=== PATIENT | male | born 1985 | race African-American/Black ===

== ENCOUNTER 2018-07-10 06:24 | Emergency (ER) | payer MEDICARE, OTHER ==
[2018-07-10 06:41] VITALS: BP 157/90; PULSE 102; RESP 20; TEMP 98.6
[2018-07-10] MEDS ORDERED: LORazepam 1 MG TAB PO STA (07:15)
--- NOTE | 2018-07-10 07:17 | ED ---
General Adult HPI - General Chief complaint: Anxiety Stated complaint: anxiety Time Seen by Provider: 07/10/18 07:04 Source: patient, RN notes reviewed Mode of arrival: ambulatory Limitations: no limitations - History of Present Illness Initial comments: Patient is a pleasant 33-year-old male presenting to the emergency Department with mother for anxiety. Symptoms have been worse over the past week, especially today. Patient is anxious regarding to shows that he has coming up. Patient does have a history of depression and anxiety. Patient does admit to feeling somewhat depressed. Patient states there is no suicidal or homicidal thoughts. Patient states he is functional. No physical complaints. No hallucinations. Patient does have a history of similar symptoms previously. Patient does not feel he needs to be admitted to the hospital. - Related Data Home Medications Medication Instructions Recorded Confirmed Hydrochlorothiazide [Hydrodiuril] 25 mg PO DAILY 07/10/18 07/10/18 Lisinopril [Zestril] 5 mg PO DAILY 07/10/18 07/10/18 Ziprasidone [Geodon] 20 mg PO BID 07/10/18 07/10/18 Allergies Allergy/AdvReac Type Severity Reaction Status Date / Time No Known Allergies Allergy Verified 07/10/18 06:41 Review of Systems ROS Statement: Those systems with pertinent positive or pertinent negative responses have been documented in the HPI. ROS Other: All systems not noted in ROS Statement are negative. Constitutional: Denies: fever Eyes: Denies: eye pain ENT: Denies: ear pain Respiratory: Denies: cough Cardiovascular: Denies: chest pain Endocrine: Denies: fatigue Gastrointestinal: Denies: abdominal pain Genitourinary: Denies: dysuria Musculoskeletal: Denies: back pain Skin: Denies: rash Neurological: Denies: weakness Psychiatric: Reports: anxiety, depression. Denies: auditory hallucinations, visual hallucinations, homicidal thoughts, suicidal thoughts Past Medical History Past Medical History: Hypertension History of Any Multi-Drug Resistant Organisms: None Reported Past Surgical History: Hernia Repair Past Psychological History: Anxiety, Depression Smoking Status: Never smoker Past Alcohol Use History: None Reported, Heavy Past Drug Use History: None Reported General Exam Limitations: no limitations General appearance: alert, in no apparent distress, anxious Head exam: Present: atraumatic Eye exam: Present: normal appearance, PERRL ENT exam: Present: normal oropharynx Neck exam: Present: normal inspection Respiratory exam: Present: normal lung sounds bilaterally Cardiovascular Exam: Present: regular rate, normal rhythm GI/Abdominal exam: Present: soft. Absent: tenderness Extremities exam: Present: normal inspection Neurological exam: Present: alert. Absent: motor sensory deficit Psychiatric exam: Present: anxious Skin exam: Present: normal color Course Vital Signs 07/10/18 06:36 Temperature 98.6 F Pulse Rate 102 H Respiratory 20 Rate Blood Pressure 157/90 O2 Sat by Pulse 97 Oximetry Disposition Clinical Impression: Acute anxiety Disposition: HOME SELF-CARE Condition: Stable Instructions: Generalized Anxiety Disorder (ED) Additional Instructions: Please follow-up with primary care physician in the next couple of days for recheck and medication review. Return for thoughts of self-harm, worsening symptoms or other concerns. Is patient prescribed a controlled substance at d/c from ED?: No Referrals: Venice Wild MD [Primary Care Provider] - 1-2 days Time of Disposition: 07:17
== END 2018-07-10 07:30 | disposition home or self-care (01) ==
LOC: EC 06:24
DX: F41.9 Anxiety disorder, unspecified (principal); F32.9 Major depressive disorder, single episode, unspecified; I10 Essential (primary) hypertension; Z79.899 Other long term (current) drug therapy
CPT/HCPCS: 99283

== ENCOUNTER 2018-07-25 14:18 | Emergency (ER) | payer OTHER ==
[2018-07-25] MEDS ORDERED: ONDANSETRON 4 MG/2 ML VIAL IVP STA (14:49)
[2018-07-25] MEDS ORDERED: MORPHINE SULFATE 4 MG/ML SYRINGE IV STA (14:49)
[2018-07-25] MEDS ORDERED: VANCOMYCIN 1,500 MG in SODIUM CHLORIDE 0.9% 250 ML IVPB STA (14:49)
--- NOTE | 2018-07-25 14:52 | ED ---
General Adult HPI - General Chief complaint: Skin/Abscess/Foreign Body Stated complaint: Cellulitis Time Seen by Provider: 07/25/18 14:31 Source: patient, RN notes reviewed Mode of arrival: ambulatory Limitations: no limitations - History of Present Illness Initial comments: Patient 33-year-old male with significant past medical history for hypertension , presents emergency room today with a chief complaint of a abscess to the left hip. Patient does admit that he fell approximately a week ago. He states it was a small bruise start with. He states over last 3 or 4 days she's noticed area becoming more tender and painful. States her last dated started to drain. Patient states that he didn't follow up with urgent care today sized to come here to the emergency room for further evaluation. Patient denies any recent fever, chills, shortness of breath, chest pain, back pain, abdominal pain, nausea or vomiting, numbness or tingling, headaches or visual changes, or any other complaints. - Related Data Home Medications Medication Instructions Recorded Confirmed Hydrochlorothiazide [Hydrodiuril] 25 mg PO DAILY 07/10/18 07/10/18 Lisinopril [Zestril] 5 mg PO DAILY 07/10/18 07/10/18 Ziprasidone [Geodon] 20 mg PO BID 07/10/18 07/10/18 Previous Rx's Medication Instructions Recorded Cephalexin [Keflex] 500 mg PO Q12HR 10 Days cap 07/25/18 Sulfamethox-Tmp 800-160Mg [Bactrim 1 tab PO Q12HR #20 tab 07/25/18 DS 800-160 mg] Allergies Allergy/AdvReac Type Severity Reaction Status Date / Time No Known Allergies Allergy Verified 07/25/18 14:25 Review of Systems ROS Statement: Those systems with pertinent positive or pertinent negative responses have been documented in the HPI. ROS Other: All systems not noted in ROS Statement are negative. Past Medical History Past Medical History: Hypertension History of Any Multi-Drug Resistant Organisms: None Reported Past Surgical History: Hernia Repair Past Psychological History: Anxiety, Depression Smoking Status: Never smoker Past Alcohol Use History: Heavy Past Drug Use History: None Reported General Exam - General Exam Comments Initial Comments: General: The patient is awake and alert, in no distress, and does not appear acutely ill. Eye: Pupils are equal, round and reactive to light. Extra-ocular movements are intact. No nystagmus. There is normal conjunctiva bilaterally. No signs of icterus. Ears, nose, mouth and throat: There are moist mucous membranes and no oral lesions. Neck: The neck is supple, there is no tenderness or JVD. Musculoskeletal: Normal ROM, no tenderness. Sensation intact. Strength 5/5. Pulses equal bilaterally 2+. Neurological: A&O x 3. CN II-XII intact, There are no obvious motor or sensory deficits. Coordination appears grossly intact. Speech is normal. Skin: Patient does have large abscess to the left hip. Measures approximately 4 cm across. There is an ulcerated area centrally with some small amount of drainage. Psychiatric: Cooperative, appropriate mood & affect, normal judgment. Limitations: no limitations Course Vital Signs 07/25/18 14:22 Temperature 99.0 F Pulse Rate 84 Respiratory 20 Rate Blood Pressure 117/79 O2 Sat by Pulse 97 Oximetry Procedures - Procedures Initial comment: Procedure: Incision and drainage The skin overlying the abscess was prepped with Betadine, and anesthetized with 1% lidocaine without epinephrine. A #11 scalpel was then used to incise the abscess. Some purulent material was then extracted from the lesion. Wound culture obtained. Gauze dressing placed on top, The patient tolerated the procedure well. Medical Decision Making - Medical Decision Making Patient reexamined at this time shows no signs of icterus is resting comfortably. Patient's abscess had minimal drainage in the emergency room. Wound culture is pending. Labs reviewed and negative lactic acid. White count 15,000. Was recommended to the patient about admission to the hospital. 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 States that he cannot stay to be admitted. Patient has received IV dose of vancomycin and Rocephin emergency room. Patient will be continued on antibiotics Keflex, Bactrim. Is advised following up with family physician/ surgeon. Advised that should return if symptoms increase or worsen. Advised to use warm compresses to the affected area. He states understanding and is in agreement. - Lab Data Result diagrams: 07/25/18 15:02 07/25/18 15:02 Lab Results 07/25/18 07/25/18 07/25/18 Range/Units 15:02 15:02 15:02 WBC 15.5 H (3.8-10.6) k/uL RBC 5.01 (4.30-5.90) m/uL Hgb 15.5 (13.0-17.5) gm/dL Hct 44.4 (39.0-53.0) % MCV 88.6 (80.0-100.0) fL MCH 30.9 (25.0-35.0) pg MCHC 34.9 (31.0-37.0) g/dL RDW 12.3 (11.5-15.5) % Plt Count 200 (150-450) k/uL Neutrophils % 76 % Lymphocytes % 11 % Monocytes % 9 % Eosinophils % 1 % Basophils % 0 % Neutrophils # 11.9 H (1.3-7.7) k/uL Lymphocytes # 1.7 (1.0-4.8) k/uL Monocytes # 1.4 H (0-1.0) k/uL Eosinophils # 0.1 (0-0.7) k/uL Basophils # 0.0 (0-0.2) k/uL Sodium 136 L (137-145) mmol/L Potassium 3.6 (3.5-5.1) mmol/L Chloride 95 L (98-107) mmol/L Carbon Dioxide 31 H (22-30) mmol/L Anion Gap 10 mmol/L BUN 18 (9-20) mg/dL Creatinine 1.05 (0.66-1.25) mg/dL Est GFR (CKD-EPI)AfAm >90 (>60 ml/min/1.73 sqM) Est GFR (CKD-EPI)NonAf >90 (>60 ml/min/1.73 sqM) Glucose 105 H (74-99) mg/dL Plasma Lactic Acid Casey 1.0 (0.7-2.0) mmol/L Calcium 9.1 (8.4-10.2) mg/dL Total Bilirubin 2.0 H (0.2-1.3) mg/dL AST 29 (17-59) U/L ALT 20 L (21-72) U/L Alkaline Phosphatase 62 (38-126) U/L Total Protein 7.4 (6.3-8.2) g/dL Albumin 4.0 (3.5-5.0) g/dL Disposition Clinical Impression: Abscess or cellulitis of hip Disposition: HOME SELF-CARE Instructions: Abscess (ED) Additional Instructions: Please use medication as discussed. Please follow-up with the surgeon/family doctor over the next 2 days. Please remove packing gauze in 2 days as discussed or return here to the emergency room symptoms increase worsen. Prescriptions: Cephalexin [Keflex] 500 mg PO Q12HR 10 Days cap Sulfamethox-Tmp 800-160Mg [Bactrim DS 800-160 mg] 1 tab PO Q12HR #20 tab Is patient prescribed a controlled substance at d/c from ED?: No Referrals: Venice Wild MD [Primary Care Provider] - 1-2 days Niko Massey DO [Doctor of Osteopathic Medicine] - 1-2 days Time of Disposition: 16:42
[2018-07-25] MEDS ORDERED: LIDOCAINE 1% INJ 10MG/ML (20 ML MDV) SQ STA (15:14)
[2018-07-25 15:20] LABS: Basophils % (A) 0 %; Eosinophils # (A) 0.1 k/uL (0-0.7); Eosinophils % (A) 1 %; HCT 44.4 % (39.0-53.0); HGB 15.5 gm/dL (13.0-17.5); Lymphocytes # (A) 1.7 k/uL (1.0-4.8); Lymphocytes % (A) 11 %; MCH 30.9 pg (25.0-35.0); MCHC 34.9 g/dL (31.0-37.0); MCV 88.6 fL (80.0-100.0); Mean Platelet Volume 7.8; Monocytes # (A) 1.4 k/uL (0-1.0); Monocytes % (A) 9 %; Neutrophils # (A) 11.9 k/uL (1.3-7.7); Neutrophils % (A) 76 %; Platelet Count 200 k/uL (150-450); RBC 5.01 m/uL (4.30-5.90); RDW 12.3 % (11.5-15.5); WBC 15.5 k/uL (3.8-10.6)
[2018-07-25 15:39] LABS: ALT 20 U/L (21-72); AST 29 U/L (17-59); Alkaline Phosphatase 62 U/L (38-126); Anion Gap 10 mmol/L; Blood Urea Nitrogen 18 mg/dL (9-20); Calcium 9.1 mg/dL (8.4-10.2); Carbon Dioxide 31 mmol/L (22-30); Chloride 95 mmol/L (98-107); Glucose 105 mg/dL (74-99); Sodium 136 mmol/L (137-145); Total Protein 7.4 g/dL (6.3-8.2)
[2018-07-25 15:42] LABS: Potassium 3.6 mmol/L (3.5-5.1)
[2018-07-25 17:53] VITALS: BP 112/70; PULSE 82; RESP 18; TEMP 98
[2018-07-26] MEDS ORDERED: VANCOMYCIN 1,500 MG in SODIUM CHLORIDE 0.9% 250 ML IVPB SCH ×2
== END 2018-07-25 17:48 | disposition home or self-care (01) ==
LOC: EC 14:18
DX: L02.416 Cutaneous abscess of left lower limb (principal); I10 Essential (primary) hypertension; F32.9 Major depressive disorder, single episode, unspecified; Z79.899 Other long term (current) drug therapy
CPT/HCPCS: 36415; 80053; 83605; 85025; 87040; 87070; 87205; 99283; 10060; 96365; 96367; 96366; J3370; J2270; J2405; J2001; J0696

== ENCOUNTER 2018-07-26 21:18 | Inpatient (IN) | payer OTHER ==
[2018-07-26] MEDS ORDERED: ceFAZolin IN SWFI 2 GM/20 ML SYRINGE IVP ONE (21:40)
[2018-07-26] MEDS ORDERED: ACETAMINOPHEN TAB 325 MG TAB PO PRN (21:40)
[2018-07-26] MEDS ORDERED: IBUPROFEN 400 MG TAB PO PRN (21:40)
[2018-07-26] MEDS ORDERED: oxyCODONE-APAP 5-325MG 1 EACH TAB PO PRN (21:40)
[2018-07-26] MEDS ORDERED: NALOXONE 0.4 MG/ML 1 ML VIAL IV PRN (21:40)
--- NOTE | 2018-07-26 22:09 | ED ---
Skin/Abscess/FB HPI - General Chief complaint: Skin/Abscess/Foreign Body Stated complaint: ABNORMAL LABS Source: patient Mode of arrival: ambulatory Limitations: no limitations - History of Present Illness Initial comments: Guru is a 33-year-old male with a history of hypertension who presents to the emergency department today after labs from yesterday revealed blood cultures that were positive for group A strep. Patient was seen and evaluated in our department yesterday for an abscess on his left hip. The abscess was I&D, it was packed with gauze and he was discharged home on oral Bactrim and Keflex. 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 His mother picked up his medications from the pharmacy today and he took his first dose around 5 PM. Patient was called back and notified of is positive for cultures and immediately return to the emergency department for reevaluation and admission. - Related Data Home Medications Medication Instructions Recorded Confirmed Hydrochlorothiazide [Hydrodiuril] 25 mg PO DAILY 07/10/18 07/26/18 Lisinopril [Zestril] 5 mg PO DAILY 07/10/18 07/26/18 Ziprasidone [Geodon] 20 mg PO BID 07/10/18 07/26/18 Potassium Chloride ER [K-Dur 20] 20 meq PO DAILY 07/26/18 07/26/18 Previous Rx's Medication Instructions Recorded Cephalexin [Keflex] 500 mg PO Q12HR 10 Days cap 07/25/18 Sulfamethox-Tmp 800-160Mg [Bactrim 1 tab PO Q12HR #20 tab 07/25/18 DS 800-160 mg] Allergies Allergy/AdvReac Type Severity Reaction Status Date / Time No Known Allergies Allergy Verified 07/26/18 21:37 Review of Systems ROS Statement: Those systems with pertinent positive or pertinent negative responses have been documented in the HPI. ROS Other: All systems not noted in ROS Statement are negative. Past Medical History Past Medical History: Hypertension History of Any Multi-Drug Resistant Organisms: None Reported Past Surgical History: Hernia Repair Past Psychological History: Anxiety, Depression Smoking Status: Never smoker Past Alcohol Use History: Heavy Past Drug Use History: None Reported General Exam - General Exam Comments Initial Comments: Physical Exam GENERAL: Patient is well-developed and well-nourished. Patient is nontoxic and well-hydrated and is in no distress. HENT: Normocephalic, Atraumatic. EYES: PERRL, EOMI PULMONARY: Unlabored respirations. CARDIOVASCULAR: There is a regular rate and rhythm without any murmurs gallops or rubs. ABDOMEN: Soft and nontender with normal bowel sounds. SKIN: Abscess on left hip, packed with gauze, minimal purulent drainage, surrounding cellulitis. : Deferred NEUROLOGIC: Patient is alert and oriented x3. Moving all extremities spontaneously MUSCULOSKELETAL: Normal extremities with adequate strength and full range of motion. No lower extremity swelling or edema. No calf tenderness. PSYCHIATRIC: Normal psychiatric evaluation. Limitations: no limitations Limitations: no limitations Course Vital Signs 07/26/18 21:20 Temperature 98 F Pulse Rate 85 Respiratory 18 Rate Blood Pressure 137/85 O2 Sat by Pulse 99 Oximetry Medical Decision Making - Medical Decision Making care was discussed with Dr. Tesfaye evaluated the patient yesterday and followed up on blood cultures today. He had contacted the patient to return back to the emergency department today for admission. Dr. Tesfaye had discussed the patient care with infectious disease Dr Cisneros who recommended repeat blood cultures and Cafazolin 2g Q8hr Patient was seen and evaluated immediately upon arrival Repeat sepsis order set was ordered Patient's vital signs stable, no hypotension Physical exam reveals abscess which is packed as well as cellulitis with minimal tenderness Patient very well-appearing, agreeable to plan for admission for IV antibiotics. Admission orders were placed. - EKG Data -: EKG Interpreted by Me EKG Comments: EKG obtained at 2209, rate is 65, rhythm is sinus, there is a leftward axis, normal intervals, MA 126, QRS 1-2, QTc 420. There are no acute ST elevations or depressions no evidence of acute ischemia or infarction. Disposition Clinical Impression: Bacteremia, Abscess or cellulitis of hip Disposition: ADMITTED IP TO THIS HOSP Referrals: Venice Wild MD [Primary Care Provider] - 1-2 days
[2018-07-26 22:10] LABS: Partial Thromboplastin Time 25.4 sec (22.0-30.0); Prothrombin Time 10.1 sec (9.0-12.0)
[2018-07-26 22:14] LABS: ALT 22 U/L (21-72); AST 26 U/L (17-59); Alkaline Phosphatase 82 U/L (38-126); Anion Gap 8 mmol/L; Blood Urea Nitrogen 19 mg/dL (9-20); Calcium 9.4 mg/dL (8.4-10.2); Carbon Dioxide 31 mmol/L (22-30); Chloride 100 mmol/L (98-107); Glucose 98 mg/dL (74-99); Potassium 3.3 mmol/L (3.5-5.1); Sodium 139 mmol/L (137-145); Total Bilirubin 1.2 mg/dL (0.2-1.3); Total Protein 7.3 g/dL (6.3-8.2)
[2018-07-26 22:16] LABS: HCT 43.2 % (39.0-53.0); HGB 14.7 gm/dL (13.0-17.5); MCH 30.4 pg (25.0-35.0); MCHC 33.9 g/dL (31.0-37.0); MCV 89.6 fL (80.0-100.0); Mean Platelet Volume 7.5; Platelet Count 258 k/uL (150-450); RBC 4.82 m/uL (4.30-5.90); RDW 12.4 % (11.5-15.5); WBC 6.1 k/uL (3.8-10.6)
[2018-07-26] MEDS: SODIUM CHLORIDE 0.9% 1,000 ML IV SCH ×2 (22:17→22:18)
[2018-07-26] MEDS: SODIUM CHLORIDE 0.9% 500 ML 500 ML IV SCH ×2 (22:19→23:34)
[2018-07-26 22:52] LABS: Eosinophils # (M) 0.06 k/uL (0-0.7); Lymphocytes # (M) 1.34 k/uL (1.0-4.8); Monocytes # (M) 1.16 k/uL (0-1.0); Neutrophils # (M) 3.54 k/uL (1.3-7.7); Neutrophils % (M) 58 %; Nucleated Red Blood Cells 0 /100 WBC (0-0); Total Cells Counted 100
[2018-07-27] MEDS: ceFAZolin IN SWFI 2 GM/20 ML SYRINGE IVP SCH ×3 (05:07→21:20)
--- NOTE | 2018-07-27 08:53 | P.HPIM ---
History of Present Illness This is a pleasant 33 years old male with past medical history of hypertension and depression, he came because of infected wound with purulent discharge on his left lateral upper thigh. 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 In the emergency room Vitas looks stable patient is afebrile. His WBC is 6.1K. Risks of CBC was unremarkable as well as BMP except for mild hypokalemia. Wound culture is positive for strep pyogenes. EKG shows normal sinus rhythm. Review of Systems CONSTITUTIONAL: No fever, no malaise, no fatigue. HEENT: No recent visual problems or hearing problems. Denied any sore throat. CARDIOVASCULAR: No orthopnea, PND, no palpitations, no syncope. PULMONARY: No shortness of breath, no cough, no hemoptysis. GASTROINTESTINAL: No diarrhea, no nausea, no vomiting, no abdominal pain. Normoactive bowel sounds. NEUROLOGICAL: No headaches, no weakness, no numbness. HEMATOLOGICAL: Denies any bleeding or petechiae. GENITOURINARY: Denies any burning micturition, frequency, or urgency. MUSCULOSKELETAL/RHEUMATOLOGICAL: Denies any joint pain, swelling, or any muscle pain. ENDOCRINE: Denies any polyuria or polydipsia. Past Medical History Past Medical History: Hypertension History of Any Multi-Drug Resistant Organisms: None Reported Past Surgical History: Hernia Repair Past Psychological History: Anxiety, Bipolar, Depression Smoking Status: Never smoker Past Alcohol Use History: Heavy Past Drug Use History: None Reported - Past Family History Mother Family Medical History: CVA/TIA Additional Family Medical History / Comment(s): breast CA Medications and Allergies Home Medications Medication Instructions Recorded Confirmed Type Hydrochlorothiazide [Hydrodiuril] 25 mg PO DAILY 07/10/18 07/26/18 History Lisinopril [Zestril] 5 mg PO DAILY 07/10/18 07/26/18 History Ziprasidone [Geodon] 20 mg PO BID 07/10/18 07/26/18 History Cephalexin [Keflex] 500 mg PO Q12HR 10 Days cap 07/25/18 07/26/18 Rx Sulfamethox-Tmp 800-160Mg [Bactrim 1 tab PO Q12HR #20 tab 07/25/18 07/26/18 Rx DS 800-160 mg] Potassium Chloride ER [K-Dur 20] 20 meq PO DAILY 07/26/18 07/26/18 History Allergies Allergy/AdvReac Type Severity Reaction Status Date / Time No Known Allergies Allergy Verified 07/26/18 21:37 Physical Exam Vitals: Vital Signs Temp Pulse Pulse Resp BP BP Pulse Ox 07/27/18 05:50 97.7 F 59 L 16 133/78 100 07/26/18 23:00 97.9 F 76 16 135/90 95 07/26/18 21:20 98 F 85 18 137/85 99 Intake and Output 07/26/18 07/27/18 07/27/18 22:59 06:59 14:59 Other: # Voids 2 Weight 92.079 kg GENERAL: The patient is alert and oriented x3, not in any acute distress. Well developed, well nourished. HEENT: Pupils are round and equally reacting to light. EOMI. No scleral icterus. No conjunctival pallor. Normocephalic, atraumatic. No pharyngeal erythema. No thyromegaly. CARDIOVASCULAR: S1 and S2 present. No murmurs, rubs, or gallops. PULMONARY: Chest is clear to auscultation, no wheezing or crackles. ABDOMEN: Soft, nontender, nondistended, normoactive bowel sounds. No palpable organomegaly. MUSCULOSKELETAL: No joint swelling or deformity. -EXTREMITIES: No cyanosis, clubbing, or pedal edema. Left upper arm lateral thigh wound about half inch in diameter and there is wick in place soaked with some purulent drainage NEUROLOGICAL: Gross neurological examination did not reveal any focal deficits. SKIN: No rashes. Results CBC & Chem 7: 07/26/18 21:47 07/26/18 21:47 Labs: Abnormal Lab Results - Last 24 Hours (Table) 07/26/18 07/26/18 Range/Units 21:47 21:47 Monocytes # (Manual) 1.16 H (0-1.0) k/uL Potassium 3.3 L (3.5-5.1) mmol/L Carbon Dioxide 31 H (22-30) mmol/L Thrombosis Risk Factor Assmnt - Choose All That Apply Any of the Below Risk Factors Present?: No Other Risk Factors: No Other congenital or acquired thrombophilia - If yes, enter type in comment: No Thrombosis Risk Factor Assessment Level: Very Low Risk Assessment and Plan Assessment: Infected left upper thigh wound Status post fall, without loss of consciousness. History of depression Essential hypertension Plan: this is a pleasant 43 years old male who comes with a suspected left upper thigh wound. We'll continue with antibiotics. Follow-up culture and sensitivity. Infectious disease consult. And surgical service consult. Labs and medication were reviewed.. Continue same treatment. Continue with symptomatic treatment. Resume home medication. Monitor lytes and vitals. DVT and GI prophylaxis. Further recommendations of the clinical course of the patient DVT prophylaxis: Subcutaneous heparin GI Prophylaxis: Pepcid PT/OT: Pending Prognosis is guarded
[2018-07-27] MEDS: HYDROCHLOROTHIAZIDE 25 MG TAB PO SCH (10:17)
[2018-07-27] MEDS: HEPARIN SODIUM,PORCINE 5,000 UNIT/ML 1 ML VIAL SQ SCH ×2 (10:17→20:50)
[2018-07-27] MEDS: LISINOPRIL 5 MG TAB PO SCH (10:17)
[2018-07-27] MEDS: ZIPRASIDONE 20 MG CAP PO SCH ×2 (10:18→20:50)
[2018-07-27] MEDS: POTASSIUM CHLORIDE ER 20 MEQ TAB.ER PO SCH (10:18)
[2018-07-27] MEDS: SODIUM CHLORIDE 0.9% 1,000 ML IV SCH ×2 (16:57→21:12)
--- NOTE | 2018-07-27 19:30 | CONS ---
CONSULTATION DATE OF SERVICE: 07/27/2018. REASON FOR CONSULTATION: 1. Left gluteal abscess. 2. Strep bacteremia. HISTORY OF PRESENT ILLNESS: The patient is a 33 -year-old male who was recently evaluated in the [facility] ER on 07/25/2018. The patient presented with a painful lump to his left gluteal area that the patient had for about a week before he presented to the hospital. It started as a small bruise that has significant increase in size. Has been becoming more painful and tender. Pain described to be throbbing 6 to 7/10, and no radiation. The patient subsequently was evaluated by the ER physician and did have drainage of this abscess. This patient did have local cultures obtained as well as blood cultures and was discharged home on the oral Keflex and Bactrim DS. The lab called yesterday and his blood cultures to be positive with group B strep and the patient has been advised to come back to the hospital. Subsequently was admitted to the hospital and discussion with the ER physician, cefazolin was recommended but the patient currently be started on. He has been admitted hospital and I was asked to see the patient for further recommendation regarding antibiotic therapy. REVIEW OF SYSTEMS: CONSTITUTIONAL: Positive for weakness, some chills but denies high fever. Eyes: No complaint. ENT no complaint. Respiratory: No complaint. Cardiovascular: No complaint. Genitourinary no complaint. Gastrointestinal: No complaint. Musculoskeletal as per HPI. Integumentary as per HPI. Psychological: No complaint. Endocrine: No complaint. Neurologic: No complaint. PAST MEDICAL HISTORY: Hypertension, anxiety, depression. PAST SURGICAL HISTORY: Hernia repair. SOCIAL HISTORY: Positive for heavy drinking. No smoking or drug use. FAMILY HISTORY: No pertinent findings noticed. ALLERGIES: No known drug allergies. MEDICATION: Medications include the patient is currently on Tylenol, cefazolin 2 g every 8 hours. Heparin, hydrochlorothiazide, Motrin Zestril, Narcan, Percocet, K-Dur, . EXAMINATION: Blood pressure is 123/75 with a pulse of 71, temperature 98.2. He is 97% on room air. General appearance is a middle-aged male lying in bed in no distress. No tachypnea or accessory muscles of respiration use. HEENT: Shows no pallor or scleral icterus. Oral mucosa membranes are dry. No pharyngeal erythema or thrush. NECK: Trachea central. No thyromegaly. LUNGS: Unlabored breathing, clear to auscultation anteriorly. No wheeze or crackles. Heart S1, S2. Regular rate and rhythm. ABDOMEN: Soft, no tenderness. No guarding or rigidity. Extremities are no edema of the feet. Examination of the left hip area did have a wound with significant slough tissue. No surrounding erythema or induration or any foul-smelling drainage. Neurologically, patient is awake, alert, oriented times three. Mood and affect normal. LABS: Hemoglobin is 14.7, white count 6.1, BUN of 19 creatinine 0.95. has been normal. Blood culture has been negative so far. The wound culture with Streptococcus pyogenes. DIAGNOSTIC IMPRESSION AND PLAN: Patient with left hip/gluteal area abscess status post drainage. Culture has been positive for Streptococcus pyogenes with blood culture reported positive. However I do not see those cultures positive in the system. Will be contacting the lab to clarify the position. Blood culture has been ordered repeat which has been negative so far. PLAN: 1. Recommend cefazolin 2 g q.8 hours while waiting for the blood culture to finalize. 2. Local wound care with Aquacel Silver packing of the wound. 3. We will follow up on clinical condition and culture to further adjust medication if needed. Thank you for this consultation. We will follow the patient along with you. BISMARK / YOUSUFN: [id number] /
[2018-07-28] MEDS: ceFAZolin IN SWFI 2 GM/20 ML SYRINGE IVP SCH ×2 (06:27→13:00)
[2018-07-28] MEDS: POTASSIUM CHLORIDE ER 20 MEQ TAB.ER PO SCH (07:23)
[2018-07-28] MEDS: HEPARIN SODIUM,PORCINE 5,000 UNIT/ML 1 ML VIAL SQ SCH (07:23)
[2018-07-28] MEDS: HYDROCHLOROTHIAZIDE 25 MG TAB PO SCH (07:24)
[2018-07-28] MEDS: ZIPRASIDONE 20 MG CAP PO SCH (07:24)
[2018-07-28] MEDS: LISINOPRIL 5 MG TAB PO SCH (07:24)
--- NOTE | 2018-07-28 09:37 | P.GSCN ---
History of Present Illness Consult date: 07/28/18 History of present illness: 33-year-old male presented to the emergency department on 07/25/2018 due to a painful lump on his left lateral thigh. He states that this lump had been present for approximately 1 week prior to his arrival to the emergency department. On exam by the emergency department, the patient did have an incision and drainage of this site. Cultures were obtained at the time. 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 He was called by the hospital after culture results were finalized to return to the hospital for IV antibiotics. The patient did return. He has been admitted and has been placed on IV antibiotics with an infectious disease consultation. He states that the pain from the site has improved since the incision and drainage. He states that there is still some drainage from the site. He denies any fevers, chills, chest pain or shortness of breath. Review of Systems All systems: negative Past Medical History Past Medical History: Hypertension History of Any Multi-Drug Resistant Organisms: None Reported Past Surgical History: Hernia Repair Past Psychological History: Anxiety, Bipolar, Depression Smoking Status: Never smoker Past Alcohol Use History: Heavy Past Drug Use History: None Reported - Past Family History Mother Family Medical History: CVA/TIA Additional Family Medical History / Comment(s): breast CA Medications and Allergies Home Medications Medication Instructions Recorded Confirmed Type Hydrochlorothiazide [Hydrodiuril] 25 mg PO DAILY 07/10/18 07/26/18 History Lisinopril [Zestril] 5 mg PO DAILY 07/10/18 07/26/18 History Ziprasidone [Geodon] 20 mg PO BID 07/10/18 07/26/18 History Cephalexin [Keflex] 500 mg PO Q12HR 10 Days cap 07/25/18 07/26/18 Rx Sulfamethox-Tmp 800-160Mg [Bactrim 1 tab PO Q12HR #20 tab 07/25/18 07/26/18 Rx DS 800-160 mg] Potassium Chloride ER [K-Dur 20] 20 meq PO DAILY 07/26/18 07/26/18 History Allergies Allergy/AdvReac Type Severity Reaction Status Date / Time No Known Allergies Allergy Verified 07/26/18 21:37 Surgical - Exam Osteopathic Statement: *. No significant issues noted on an osteopathic structural exam other than those noted in the History and Physical/Consult. Vital Signs Temp Pulse Resp BP Pulse Ox 98 F 85 18 137/85 99 07/26/18 21:20 07/26/18 21:20 07/26/18 21:20 07/26/18 21:20 07/26/18 21:20 - General well nourished, no distress - Eyes normal ocular movement - ENT normal mucosa, no hearing loss - Neck trachea midline - Respiratory No difficulty with respiration - Abdomen Soft, nontender, nondistended, no rebound, no guarding - Integumentary Left lateral thigh with incision and drainage site. No surrounding fluctuance or induration. There is some continued purulent drainage. Packing is in place - Neurologic normal sensation - Psychiatric oriented to time, oriented to person, oriented to place Results - Labs 07/26/18 21:47 07/26/18 21:47 Microbiology - Last 24 Hours (Table) 07/26/18 21:47 Blood Culture - Preliminary Blood No Growth after 24 hours Assessment and Plan (1) Abscess or cellulitis of hip Narrative/Plan: 33-year-old male with abscess to left lateral thigh, status post I&D - The site was examined, the initial incision and drainage appears to be adequate with adequate drainage from the site and no surrounding palpable fluctuance or induration, no plan for any additional incision and drainage at this time - Continue local wound care - Continue antibiotics per infectious disease Thank you for this consultation, I look forward in providing in this patient's care Current Visit: Yes Status: Acute Code(s): CFF6903 - SNOMED Code(s): 942102739
[2018-07-28 09:41] LABS: Anion Gap 6 mmol/L; Blood Urea Nitrogen 13 mg/dL (9-20); Calcium 8.9 mg/dL (8.4-10.2); Carbon Dioxide 31 mmol/L (22-30); Chloride 101 mmol/L (98-107); Glucose 124 mg/dL (74-99); Potassium 3.5 mmol/L (3.5-5.1); Sodium 138 mmol/L (137-145)
[2018-07-28 09:48] LABS: HCT 40.3 % (39.0-53.0); HGB 12.9 gm/dL (13.0-17.5); MCH 29.2 pg (25.0-35.0); MCHC 31.9 g/dL (31.0-37.0); MCV 91.5 fL (80.0-100.0); Mean Platelet Volume 7.5; Platelet Count 266 k/uL (150-450); RBC 4.41 m/uL (4.30-5.90); RDW 12.6 % (11.5-15.5); WBC 4.6 k/uL (3.8-10.6)
[2018-07-28 11:04] LABS: Basophils # (M) 0.09 k/uL (0-0.2); Eosinophils # (M) 0.05 k/uL (0-0.7); Lymphocytes # (M) 1.93 k/uL (1.0-4.8); Monocytes # (M) 0.37 k/uL (0-1.0); Neutrophils # (M) 2.16 k/uL (1.3-7.7); Neutrophils % (M) 47 %; Nucleated Red Blood Cells 0 /100 WBC (0-0); Total Cells Counted 100
[2018-07-28] MEDS: SODIUM CHLORIDE 0.9% 1,000 ML IV SCH (13:00)
[2018-07-28 14:17] VITALS: BP 136/80; PULSE 79; RESP 16; TEMP 97.9
[2018-07-28] MEDS ORDERED: POTASSIUM CHLORIDE ER 20 MEQ TAB.ER PO STA (15:15)
--- NOTE | 2018-07-28 17:57 | PN ---
PROGRESS NOTE DATE OF SERVICE: 07/28/2018. REASON FOR FOLLOW UP: Left hip/gluteal area Streptococcus abscess. INTERVAL HISTORY: The patient is afebrile. He was seen on rounds early this afternoon. The patient denies having any chest pain, shortness of breath, cough, no abdominal pain or pain to the left gluteal area. EXAMINATION: Blood pressure is 136/80 with a pulse of 79, temperature 97.9. He is 98% on room air. General description is patient is a middle-aged male lying in bed in no distress. Respiratory system: Unlabored breathing. Clear to auscultation anteriorly. Heart S1, S2 regular rate and rhythm. Abdomen is soft, no tenderness. Left gluteal wound is currently dressed up. No obvious drainage on the dressing. LABS: White count 4.6, BUN of 13, creatinine 0.98. Blood cultures have been negative. Wound cultures with Staphylococcus . DIAGNOSTIC IMPRESSION/PLAN: Patient with left gluteal/hip area abscess, the skin and soft tissue status post drainage. Culture was culture positive with concern for bacteremia. However, blood culture has been negative. Plan at this time is to finish therapy with oral Keflex 500 mg 3 times a day. Continue supportive care. Local wound care with Aquacel Silver packing. [facility]. MMODL / IJN: [id number] /
== END 2018-07-28 15:59 | disposition home or self-care (01) | DRG 603 ==
LOC: EC 21:18 → 4MS4W 21:40
PROVIDERS: ADMIT Hospitalist; ATTEND Hospitalist
DX: L02.416 Cutaneous abscess of left lower limb (principal); R78.81 Bacteremia; B95.1 Streptococcus, group B, as the cause of diseases classified elsewhere; S70.12XS Contusion of left thigh, sequela; W18.30XS Fall on same level, unspecified, sequela; I10 Essential (primary) hypertension; F31.9 Bipolar disorder, unspecified; F41.9 Anxiety disorder, unspecified; L03.116 Cellulitis of left lower limb; Z80.3 Family history of malignant neoplasm of breast; Z82.3 Family history of stroke; Z79.899 Other long term (current) drug therapy
CPT/HCPCS: 36415; 80048; 80053; 83605; 85025; 85610; 85730; 87040; 93005; 96374; 99284

== ENCOUNTER → 2018-11-06 | Outpatient (CLI) | payer OTHER | LOC: PROCWHC3 12:33 | PROVIDERS: ATTEND Family Medicine | DX: R05 Cough (principal); R09.81 Nasal congestion | CPT/HCPCS: 87502 ==

== ENCOUNTER → 2021-10-31 | Outpatient (CLI) | payer OTHER ==
--- NOTE | 2021-10-31 08:15 | US ---
EXAMINATION TYPE: US abdomen complete DATE OF EXAM: 10/31/2021 COMPARISON: NONE CLINICAL HISTORY: R17 UNSPECIFIED JAUNDICE, I10 ESSENTIAL (PRIMARY). Abnormal labs EXAM MEASUREMENTS: Liver Length: 18.1 cm Gallbladder Wall: 0.2 cm CBD: 0.3 cm Spleen: 11.1 cm Right Kidney: 10.2 x 5.8 x 5.0 cm Left Kidney: 10.4 x 5.5 x 5.6 cm Pancreas: wnl Liver: wnl Gallbladder: wnl Evidence for sonographic Rasheed's sign: neg CBD: wnl Spleen: wnl Right Kidney: Medial anechoic lesion at hilum = 1.3 x 0.7 cm Left Kidney: Medial anechoic lesion at hilum = 1.8 x 1.8 cm Upper IVC: wnl Abd Aorta: Mid and distal obscured by overlying bowel gas The liver is homogenous. The intrahepatic portion of the IVC and proximal abdominal aorta are within normal limits. There is no evidence of cholelithiasis. Common bile duct is unremarkable. The visu alized portions of the pancreas are homogenous. The spleen is unremarkable. Renal cysts noted. IMPRESSION: Simple renal cysts identified. Otherwise unremarkable study.
== END | disposition home or self-care (01) ==
LOC: RADUSWWP 07:41
PROVIDERS: ATTEND Family Medicine
DX: R17 Unspecified jaundice (principal); I10 Essential (primary) hypertension; N28.1 Cyst of kidney, acquired
CPT/HCPCS: 76700

== ENCOUNTER 2024-04-14 22:05 | Emergency (ER) | payer OTHER ==
[2024-04-14 22:11] VITALS: RESP 18
[2024-04-14] MEDS: ONDANSETRON ODT 4 MG TAB PO STA (22:47)
--- NOTE | 2024-04-15 00:29 | ED ---
Nausea/Vomiting/Diarrhea HPI - General Chief complaint: Nausea/Vomiting/Diarrhea Stated complaint: Vomiting Time Seen by Provider: 04/14/24 22:37 Source: patient Mode of arrival: ambulatory Limitations: no limitations - History of Present Illness Initial comments: This patient is a 38-year-old man who presents with concern that he may be having some food poisoning symptoms. The patient states he had eaten a salad from a restaurant and then shortly after developed nausea and vomiting. He states that this evening when he tried to eat something he did have another episode of vomiting. Patient is not having much pain. He has not noted change in bowel movements. He is tolerating small amounts of fluid. MD complaint: nausea, vomiting -: hour(s) Description of Vomiting: food contents Associated Abdominal Pain: No Radiation: none Severity scale (1-10): 0 Consistency: intermittent Improves with: none Worsens with: eating Context: possible food poisoning Associated Symptoms: denies other symptoms - Related Data Home Medications Medication Instructions Recorded Confirmed Ziprasidone [Geodon] 20 mg PO BID 07/10/18 07/26/18 hydroCHLOROthiazide [Hydrodiuril] 25 mg PO DAILY 07/10/18 07/26/18 lisinopriL [Zestril] 5 mg PO DAILY 07/10/18 07/26/18 Potassium Chloride ER [K-Dur 20] 20 meq PO DAILY 07/26/18 07/26/18 Previous Rx's Medication Instructions Recorded Acetaminophen Tab [Tylenol] 650 mg PO Q6HR PRN tab 07/28/18 Ondansetron Odt [Zofran ODT] 4 mg PO Q8HR PRN #10 tab 04/15/24 Allergies Allergy/AdvReac Type Severity Reaction Status Date / Time No Known Allergies Allergy Verified 04/14/24 22:11 Review of Systems ROS Statement: Those systems with pertinent positive or pertinent negative responses have been documented in the HPI. ROS Other: All systems not noted in ROS Statement are negative. Constitutional: Denies: fever, chills, weakness Respiratory: Denies: cough, dyspnea Cardiovascular: Denies: chest pain, palpitations Gastrointestinal: Reports: nausea, vomiting. Denies: abdominal pain, diarrhea, hematemesis, melena, hematochezia Genitourinary: Denies: dysuria, hematuria Musculoskeletal: Denies: back pain Skin: Denies: rash Neurological: Denies: headache, weakness Past Medical History Past Medical History: Hypertension History of Any Multi-Drug Resistant Organisms: None Reported Past Surgical History: Hernia Repair Past Psychological History: Anxiety, Bipolar, Depression Smoking Status: Never smoker Past Alcohol Use History: Heavy Past Drug Use History: None Reported - Past Family History Mother Family Medical History: CVA/TIA Additional Family Medical History / Comment(s): breast CA General Exam Limitations: no limitations General appearance: alert, in no apparent distress Head exam: Present: atraumatic, normocephalic Eye exam: Present: normal appearance. Absent: scleral icterus, conjunctival injection ENT exam: Present: normal oropharynx Neck exam: Present: normal inspection Respiratory exam: Present: normal lung sounds bilaterally. Absent: respiratory distress, wheezes, rales, rhonchi, stridor, accessory muscle use Cardiovascular Exam: Present: regular rate, normal rhythm, normal heart sounds. Absent: systolic murmur, diastolic murmur, rubs, gallop GI/Abdominal exam: Present: soft. Absent: distended, tenderness, guarding, rebound, rigid, mass Back exam: Present: normal inspection. Absent: CVA tenderness (R), CVA tenderness (L) Neurological exam: Present: alert Skin exam: Present: warm, dry, intact, normal color. Absent: rash Course Vital Signs 04/14/24 04/14/24 04/15/24 22:07 23:30 00:34 Temperature 98.6 F 98.5 F Pulse Rate 85 59 L 61 Respiratory 18 18 18 Rate Blood Pressure 151/95 129/98 131/100 O2 Sat by Pulse 96 98 98 Oximetry Medical Decision Making - Medical Decision Making Was pt. sent in by a medical professional or institution (, PA, SLAG MOTOR OPERATOR, urgent care, hospital, or intermediate...) When possible be specific @ -[No] Did you speak to anyone other than the patient for history (EMS, parent, family, police, friend...)? What history was obtained from this source @ -[No] Did you review nursing and triage notes (agree or disagree)? Why? @ -[I reviewed and agree with nursing and triage notes] Were old charts reviewed (outside hosp., previous admission, EMS record, old EKG, old radiological studies, urgent care reports/EKG's, intermediate records)? Report findings @ -[No old charts were reviewed] Differential Diagnosis (chest pain, altered mental status, abdominal pain women, abdominal pain men, vaginal bleeding, weakness, fever, dyspnea, syncope, headache, dizziness, GI bleed, back pain, seizure, CVA, palpatations, mental health, musculoskeletal)? @ -[Differential Abdominal Pain Men: Appendicitis, cholecystitis, diverticulosis, ischemic bowel, pancreatitis, hepatitis, UTI, gastroenteritis, AAA, incarcerated hernia, bowel obstruction, constipation, inflammatory bowel, hepatitis, peptic ulcer disease, splenic infarction, perforated viscus, testicular torsion, this is not meant to be an all-inclusive list EKG interpreted by me (3pts min.). @ -[As above] X-rays interpreted by me (1pt min.). @ -[None done] CT interpreted by me (1pt min.). @ -[None done] U/S interpreted by me (1pt. min.). @ -[None done] What testing was considered but not performed or refused? (CT, X-rays, U/S, labs)? Why? @ -[None] What meds were considered but not given or refused? Why? @ -[None] Did you discuss the management of the patient with other professionals (professionals i.e. , PA, SLAG MOTOR OPERATOR, lab, RT, psych nurse, protective services social worker, crts, teacher, ict customer support officer, case planner)? Give summary @ -[No] Was smoking cessation discussed for >3mins.? @ -[No] Was critical care preformed (if so, how long)? @ -[No] Were there social determinants of health that impacted care today? How? (Homelessness, low income, unemployed, alcoholism, drug addiction, transportation, low edu. Level, literacy, decrease access to med. care, detention, rehab)? @ -[No] Was there de-escalation of care discussed even if they declined (Discuss DNR or withdrawal of care, Hospice)? DNR status @ -[No] What co-morbidities impacted this encounter? (DM, HTN, Smoking, COPD, CAD, Cancer, CVA, ARF, Chemo, Hep., AIDS, mental health diagnosis, sleep apnea, morbid obesity)? @ -[None] Was patient admitted / discharged? Hospital course, mention meds given and route, prescriptions, significant lab abnormalities, going to OR and other pertinent info. @ -[Patient is 38-year-old man here with vomiting. He is concerned about food poisoning. Patient not passing any blood and is tolerating oral intake. Patient will be given prescription for antiemetics. We also discussed the appropriate further care and return parameters. Undiagnosed new problem with uncertain prognosis? @ -[No] Drug Therapy requiring intensive monitoring for toxicity (Heparin, Nitro, Insulin, Cardizem)? @ -[No] Were any procedures done? @ -[No] Diagnosis/symptom? @ -[Acute nausea and vomiting Acute, or Chronic, or Acute on Chronic? @ -[Acute Uncomplicated (without systemic symptoms) or Complicated (systemic symptoms)? @ -[Uncomplicated Side effects of treatment? @ -[No] Exacerbation, Progression, or Severe Exacerbation? @ -[No] Poses a threat to life or bodily function? How? (Chest pain, [place], IA, pneumonia, PE, COPD, DKA, ARF, appy, cholecystitis, CVA, Diverticulitis, Homicidal, Suicidal, threat to staff... and all critical care pts) @ -[No] Disposition Clinical Impression: Vomiting Disposition: HOME SELF-CARE Condition: Good Instructions (If sedation given, give patient instructions): Acute Nausea and Vomiting (ED) Prescriptions: Ondansetron Odt [Zofran ODT] 4 mg PO Q8HR PRN #10 tab PRN Reason: Nausea Is patient prescribed a controlled substance at d/c from ED?: No Referrals: Venice Wild MD [Primary Care Provider] - 1-2 days
[2024-04-15 00:35] VITALS: BP 131/100; PULSE 61; TEMP 98.5
== END 2024-04-15 00:35 | disposition home or self-care (01) ==
LOC: EC 22:05
DX: R11.2 Nausea with vomiting, unspecified (principal); Z98.890 Other specified postprocedural states
CPT/HCPCS: 99284